=== PATIENT | female | born 1995 | race Caucasian/White ===

== ENCOUNTER 2016-03-23 18:10 | Emergency (ER) | payer OTHER ==
[~2016-03-23] VITALS: Ht 165.1 cm; Wt 55.6 kg
[2016-03-23 18:21] VITALS: TEMP 36.5; Ht 165.1 cm; Wt 55.6 kg
[2016-03-23] MEDS ORDERED: SODIUM CHLORIDE 0.9% 1000ML 1,000 ML IV STA (18:38)
[2016-03-23] MEDS ORDERED: IBUP-1050 PO (18:42)
[2016-03-23] MEDS ORDERED: BCPILLS PO (18:42)
[2016-03-23] MEDS ORDERED: OPTIRAY 320 IV PRN (18:45)
--- NOTE | 2016-03-23 18:50 | EMERGENCY ROOM VISIT NOTE ---
History First contact with patient: 18:26 Chief Complaint: ABDOMINAL PAIN Stated Complaint: ABD PAIN, VOMITING History of Present Illness The patient is a 21 year old female who presents to the Emergency Room via private vehicle accompanied by roommate with complaints of "abdominal pain, vomiting". Patient states that she woke up this morning around 8 AM with pain in the right lower quadrant. She then vomited around 11 AM or noon time today. She then vomited again and tried to eat and then had diarrhea 2. She is a constant cramps all day. She states that prior to coming here in the roommate states she almost passed out twice, her face turned green and she "lost her vision". She notes that her roommate had a stomach bug 2 days ago but these were different symptoms. She now points to the lower quadrants favoring the right side. She does have associated chills. She denies any vomiting blood, fevers, having this before, prior abdominal surgeries, appendix, chest pain, shortness of breath, history of ovarian torsion, history of some ovarian cysts, chance of , vaginal discharge or urinary symptoms. She declined pelvic exam noted that she just had one. Review of Systems A complete 10-point Review of Systems was discussed with the patient, with pertinent positives and negatives listed in the History of Present Illness. All remaining Review of Systems questions can be considered negative unless otherwise specified. Past Medical/Surgical History Skin problems, bronchitis, blood clots. Family History High blood pressure, cancer, kidney disease or stones. Social History Smoking Status: Never Smoker Social History: Patient was at home with friends, she denies tobacco use but admits to alcohol use. Current/Historical Medications Scheduled Control Pills ( Control Pills), 1 TAB PO DAILY Sulfa/Trimethoprim (Bactrim Ds 800MG/160MG), 1 TAB PO BID Scheduled PRN Ibuprofen (Advil), 600 MG PO DIRECTED PRN for Pain Allergies Coded Allergies: No Known Allergies (Unverified , 03/23/16) Physical Exam Vital Signs Date Time Temp Pulse Resp B/P Pulse Ox O2 Delivery O2 Flow Rate FiO2 03/23/16 22:06 85 20 117/61 96 03/23/16 22:01 85 20 117/61 96 Room Air 03/23/16 19:59 88 16 123/67 97 Room Air 03/23/16 18:21 36.5 110 20 95/65 99 Room Air Physical Exam VITAL SIGNS - Vital signs and nursing notes were reviewed. GENERAL -21-year-old female appearing her stated age who is in no acute distress. Patient is nontoxic in appearance. Communicates well with provider and answers questions appropriately. SKIN - Without rashes. No petechial rashes. HEAD - NC/AT. EYES - PERRL with EOMI bilaterally. Sclera anicteric. Palpebral conjunctiva pink and moist with no injection noted. EARS - No deformities of external structures noted on gross examination bilaterally. No pain elicited with palpation of the tragus bilaterally. External auditory canals without discharge or otorrhea. Tympanic membranes pearly calvillo without retraction or bulging. No fluid or purulent material visualized behind the TM. Handle of malleus, umbo, cone of light, pars tensa/ flaccid all easily visualized. NOSE - Midline and without cyanosis. No epistaxis or purulent drainage noted. Septum midline without deviation or septal hematoma noted. MOUTH/OROPHARYNX - Without perioral cyanosis. Buccal mucosa pink and moist and without leukoplakia. Tongue midline with equal elevation of palate bilaterally. No tonsillar hypertrophy, erythema, or exudates noted. Fair dentition noted. The airway is patent. NECK - Neck with FROM. Supple to palpation. No lymphadenopathy noted. No nuchal rigidity. No meningismus. LUNGS - Chest wall symmetric without accessory muscle use, intercostals retractions, or central cyanosis. Normal vesicular breath sounds CTA B/L. No wheezes, rales, or rhonchi appreciated. CARDIAC - RRR with S1/S2. No murmur, rubs, or gallops appreciated. ABDOMEN - Abdominal contour without pulsations or visible masses. BS normoactive all four quadrants. No there is localized tenderness over the right lower quadrant. No masses, hepatosplenomegaly, or ascites noted. EXTREMITIES - No clubbing or peripheral cyanosis. No pretibial edema present. + 5/5 strength noted in UE/LE bilaterally. NEUROLOGIC - Cranial nerves II through XII grossly intact. Sensory intact to light touch throughout. PSYCH - A&Ox3 and cooperates fully with examiner. Pt is very pleasant and interacts well with examiner. Patient declined pelvic exam. Sodium Medical Decision & Procedures ER Provider Diagnostic Interpretation: ULTRASOUND OF THE APPENDIX CLINICAL HISTORY: Right lower quadrant abdominal pain. COMPARISON STUDY: No priors. FINDINGS: Real-time, grayscale, and color flow sonography of the right lower quadrant was performed to assess for acute appendicitis. The appendix was not discretely visualized. No inflammatory changes or free fluid are seen in the right lower quadrant. No lymphadenopathy was seen. IMPRESSION: Nonvisualization of the appendix. Note that this does not exclude acute appendicitis. Electronically signed by: Emmanuel Hayes M.D. 03/23/2016 8:00 PM Dictated Date/Time: 03/23/2016 8:[address] SCAN OF THE ABDOMEN AND PELVIS WITH IV CONTRAST CLINICAL HISTORY: Right lower quadrant abdominal pain. COMPARISON STUDY: Right lower quadrant ultrasound dated 03/23/16. TECHNIQUE: Following the IV administration of 110 cc of Optiray 320, CT scan of the abdomen and pelvis is performed from the lung bases to the proximal femora. Images are reviewed in the axial, sagittal, and coronal planes. IV contrast was administered without complication. Automated dose control exposure was utilized. CT DOSE: 296.41 mGy.cm FINDINGS: Lung bases: The heart is normal in size and without pericardial effusion. There is a 3 mm subpleural nodule in the right lower lobe seen on image #22. A 7 mm subpleural nodule in the left lower lobe as seen on image #23. 3 additional left lower lobe pulmonary nodules measure up to 5 mm. There is no airspace consolidation or pleural effusion. Liver: The contrast-enhanced liver is normal in size, contour, and attenuation. There is no intrahepatic biliary ductal dilatation. The hepatic veins and portal veins are patent. Gallbladder: Unremarkable. Spleen: Normal in size and attenuation. Pancreas: Unremarkable. Adrenal glands: Unremarkable. Kidneys: The contrast enhanced kidneys are normal in size and without hydronephrosis. The kidneys enhance symmetrically. Abdominal vasculature: The abdominal aorta is normal in course and caliber. Bowel: The small bowel and colon are normal in course and caliber. The appendix is well-visualized and normal. Peritoneum: There is no intraperitoneal free air or abdominal ascites. There is a small fat-containing umbilical hernia. Lymphadenopathy: None. Pelvic viscera: The bladder, uterus, and adnexa are normal as visualized.There are bilateral ovarian follicles. Skeletal structures: No lytic or blastic lesions are seen. IMPRESSION: 1. There are no acute infectious or inflammatory findings in the abdomen or pelvis. 2. There are scattered pulmonary and pleural-based nodules at the lung bases which measure up to 7 mm. These are of doubtful significance in this age group. Any follow-up should be based on clinical grounds. Electronically signed by: Emmanuel Hayes M.D. 03/23/2016 9:25 PM Dictated Date/Time: 03/23/2016 9:19 PM Laboratory Results 03/23/16 18:29 Red Blood Count 4.55, Mean Corpuscular Volume 92.7, Mean Corpuscular Hemoglobin 31.0, Mean Corpuscular Hemoglobin Concent 33.4, Mean Platelet Volume 11.1, Neutrophils (%) (Auto) 87.2, Lymphocytes (%) (Auto) 7.5, Monocytes (%) (Auto) 4.7, Eosinophils (%) (Auto) 0.2, Basophils (%) (Auto) 0.1, Neutrophils # (Auto) 7.96, Lymphocytes # (Auto) 0.69, Monocytes # (Auto) 0.43, Eosinophils # (Auto) 0.02, Basophils # (Auto) 0.01 03/23/16 18:29 Test 03/23/16 18:29 03/23/16 18:38 03/23/16 19:10 White Blood Count 9.14 K/uL (4.8-10.8) Red Blood Count 4.55 M/uL (4.2-5.4) Hemoglobin 14.1 g/dL (12.0-16.0) Hematocrit 42.2 % (37-47) Mean Corpuscular Volume 92.7 fL (80-100) Mean Corpuscular Hemoglobin 31.0 pg (25-34) Mean Corpuscular Hemoglobin Concent 33.4 g/dl (32-36) Platelet Count 183 K/uL (130-400) Mean Platelet Volume 11.1 fL (7.4-10.4) Neutrophils (%) (Auto) 87.2 % Lymphocytes (%) (Auto) 7.5 % Monocytes (%) (Auto) 4.7 % Eosinophils (%) (Auto) 0.2 % Basophils (%) (Auto) 0.1 % Neutrophils # (Auto) 7.96 K/uL (1.4-6.5) Lymphocytes # (Auto) 0.69 K/uL (1.2-3.4) Monocytes # (Auto) 0.43 K/uL (0.11-0.59) Eosinophils # (Auto) 0.02 K/uL (0-0.5) Basophils # (Auto) 0.01 K/uL (0-0.2) RDW Standard Deviation 45.0 fL (36.4-46.3) RDW Coefficient of Variation 13.4 % (11.5-14.5) Immature Granulocyte % (Auto) 0.3 % Immature Granulocyte # (Auto) 0.03 K/uL (0.00-0.02) Anion Gap 10.0 mmol/L (3-11) Est Creatinine Clear Calc Drug Dose 88.0 ml/min Estimated GFR () 108.1 Estimated GFR (Non- 93.3 BUN/Creatinine Ratio 20.3 (10-20) Calcium Level 8.9 mg/dl (8.5-10.1) Magnesium Level 2.0 mg/dl (1.8-2.4) Total Bilirubin 0.9 mg/dl (0.2-1) Aspartate Amino Transf (AST/SGOT) 19 U/L (15-37) Alanine Aminotransferase (ALT/SGPT) 24 U/L (12-78) Alkaline Phosphatase 42 U/L (45-117) Total Protein 7.7 gm/dl (6.4-8.2) Albumin 3.9 gm/dl (3.4-5.0) Globulin 3.8 gm/dl (2.5-4.0) Albumin/Globulin Ratio 1.0 (0.9-2) Urine Color ORANGE Urine Appearance CLOUDY (CLEAR) Urine pH 5.5 (4.5-7.5) Urine Specific [place] 1.036 (1.000-1.030) Urine Protein NEG (NEG) Urine Glucose (UA) NEG (NEG) Urine Ketones TRACE (NEG) Urine Occult Blood NEG (NEG) Urine Nitrite POS (NEG) Urine Bilirubin NEG (NEG) Urine Urobilinogen NEG (NEG) Urine Leukocyte Esterase SMALL (NEG) Urine WBC (Auto) 10-30 /hpf (0-5) Urine RBC (Auto) 0-4 /hpf (0-4) Urine Hyaline Casts (Auto) 1-5 /lpf (0-5) Urine Epithelial Cells (Auto) >30 /lpf (0-5) Urine Bacteria (Auto) 2+ (NEG) Urine Pathogenic Casts /lpf (0) Medications Administered Medications (Trade) Dose Ordered Sig/Aldo Route Start Time Stop Time Status Last Admin Dose Admin Sodium Chloride (Nss 1000ml) 1,000 ml @ 999 mls/hr Q1H1M STAT IV 03/23/16 18:38 03/23/16 19:38 DC 03/23/16 19:08 999 MLS/HR Trimethoprim/ Sulfamethoxazole (Sulfameth/ Trimeth Ds 800/ 160MG Home Pack) 1 [facility] UD STAT PO 03/23/16 21:49 03/23/16 21:50 DC 03/23/16 22:03 1 [facility] Medical Decision Patient was evaluated as above. After obtaining a thorough history and physical exam, IV access was obtained and a CBC, CMP, ultrasound of the appendix, CT abdomen and pelvis IV and oral contrast, hydrated with 1 liter of normal saline , UA clean catch culture if indicated, urine , magnesium. The patient had pinpoint tenderness in the right lower quadrant. Concern was for appendicitis, most likely ovarian torsion. She declined pelvic exam. She most likely is experiencing a viral gastroenteritis particularly as her roommate had similar symptoms just days prior. Review of her lab work, CBC reveals no leukocytosis or anemia. Electrolytes are unremarkable. BUN/creatinine are normal. Alkaline phosphatase was slightly low. Magnesium normal. Urine reveals trace ketones, positive nitrates, small amount of leukocyte esterase, 10 -30 white blood cells, 2+ urinary bacteria and greater than 30 epithelial cells. Patient has had UTIs in the past but denies symptoms today. Urine is negative. While waiting for the patient to drink oral contrast and ultrasound of the appendix was obtained to potentially identify this on ultrasound and spared the patient from CT of the abdomen radiation. This was nondiagnostic. CT the abdomen was obtained after verifying patient consented. This did not reveal any acute findings. The lung no needles were discussed with the patient she was provided a copy of this report follow-up with her family doctor. Her parents were present during his discussion. Results of the imaging studies are as above. Again the patient is myself experiencing a viral gastroenteritis, however she was offered an ultrasound of the ovarian region to rule out torsion but noted that she would return with worsening of symptoms and declined this at this time. She declined pelvic exam. She noted that her pain and decreased from an 8/10 to a 4-5/10 after fluids. She did move her bowels once here. She clinically looks well and do believe she is stable for discharge and she indicated she would like to go home. She is to follow up with [facility] in the next few days regarding her stay here. She is to potentially follow up with surgery regarding the fact containing umbilical hernia and was provided the contact information for general surgeon. She was educated upon worrisome symptoms in which to return, educated upon management of today's findings, had questions answered prior to discharge and was discharged. She denied any for pain during her stay. In evaluation treatment this patient following differential diagnoses were entertained: Viral gastroenteritis, appendicitis, ovarian torsion, perforated bowel, epiploic appendicitis, , among others. Impression Primary Impression: Right lower quadrant abdominal pain Additional Impression: UTI (urinary tract infection) Departure Information Dispostion Home / Self-Care Condition GOOD Prescriptions Sulfa/Trimethoprim (Bactrim Ds 800MG/160MG) Tab 1 TAB PO BID for 9 Days, #18 TAB Prov: Steve Deras PA-C 03/23/16 Referrals No Doctor, Assigned (PCP) Mike Contreras M.D. Patient Instructions [facility] Additional Instructions You have been treated in the Emergency Department for abdominal pain/ Urinary Tract Infection (UTI). You have been prescribed Bactrim to be taken every 12 hours. This is an antibiotic. All antibiotics have the potential to cause diarrhea. Stop this medication and contact a medical provider if you were to develop any significant adverse side effects including: wheezing, shortness of breath, passing out, vomiting, or a diffuse rash. Always take antibiotics as directed and COMPLETE the ENTIRE course regardless of the improvement of your symptoms. You were given the first 24 hour supply here with the remainder sent to your pharmacy for mushroom picker. For pain control, you can use the following [id number] medicines (if >12 yo): - Regular strength (325mg/tab) Tylenol (acetaminophen) 2 tabs every 4-6 hours as needed. Do not exceed 12 tablets in a 24 hour period. Avoid taking more than 4 grams (4000 mg) of Tylenol per day. This includes any other sources of acetaminophen you may take on a regular basis. - Regular strength (200 mg/tab) Advil (ibuprofen) 1-2 tabs every 4-6 hours as needed. Do not exceed a dose of 3200 mg per day. Return to the emergency department if your symptoms worsen despite treatment course outlined above. Drink plenty of water and stay well hydrated. As with any trip to the Emergency Department, you should follow-up with your Primary Care Provider from today's visit. As we discussed please follow up with [facility] in the next 1- 2 days for reevaluation. Please return here for any worsening of your symptoms. Return to the emergency department if your symptoms persist despite treatment plan outlined above or if the following symptoms occur: increased fevers, chills , low back pain, nausea/vomiting, or blood in your urine. Please return to the emergency department with any new/concerning symptoms. Problem Qualifiers Additional Impression: UTI (urinary tract infection) Urinary tract infection type: acute cystitis Hematuria presence: without hematuria Qualified Codes: N30.00 - Acute cystitis without hematuria
[2016-03-23 19:30] LABS: URINE APPEARANCE CLOUDY (CLEAR); URINE COLOR ORANGE; URINE EPITHELIAL CELL AUTO >30 /lpf (0-5); URINE NITRITE POS (NEG); URINE PH 5.5 (4.5-7.5); URINE SPECIFIC GRAVITY 1.036 (1.000-1.030); UROBILINOGEN NEG (NEG); ZZUR CULT IF INDIC CLEAN CATCH YES
[2016-03-23 19:31] LABS: MANUAL MICROSCOPIC REQUIRED? NO; REVIEW REQ? YES
[2016-03-23 19:32] LABS: URINE BILIRUBIN NEG (NEG)
[2016-03-23 19:43] LABS: HEMATOCRIT 42.2 % (37-47); MEAN CELL VOLUME 92.7 fL (80-100); MEAN CORPUSCULAR HGB CONC 33.4 g/dl (32-36); MEAN PLATELET VOLUME 11.1 fL (7.4-10.4); PLATELET COUNT 183 K/uL (130-400); RED BLOOD COUNT 4.55 M/uL (4.2-5.4); WHITE BLOOD COUNT 9.14 K/uL (4.8-10.8)
[2016-03-23 20:01] LABS: BASO % 0.1 %; BASO ABS # 0.01 K/uL (0-0.2); COMPLETE YES; EOS % 0.2 %; IG% 0.3 %; LYMPH % 7.5 %; LYMPH ABS # 0.69 K/uL (1.2-3.4); MONO % 4.7 %; NEUT % 87.2 %
--- NOTE | 2016-03-23 20:01 | DIAGNOSTIC IMAGING REPORT ---
ULTRASOUND OF THE APPENDIX CLINICAL HISTORY: Right lower quadrant abdominal pain. COMPARISON STUDY: No priors. FINDINGS: Real-time, grayscale, and color flow sonography of the right lower quadrant was performed to assess for acute appendicitis. The appendix was not discretely visualized. No inflammatory changes or free fluid are seen in the right lower quadrant. No lymphadenopathy was seen. IMPRESSION: Nonvisualization of the appendix. Note that this does not exclude acute appendicitis. Electronically signed by: Emmanuel Hayes M.D. 03/23/2016 8:00 PM Dictated Date/Time: 03/23/2016 8:00 PM
[2016-03-23 20:08] LABS: BUN/CREATININE RATIO 20.3 (10-20); CALCIUM 8.9 mg/dl (8.5-10.1); CREATININE 0.88 mg/dl (0.60-1.20); POTASSIUM 3.8 mmol/L (3.5-5.1)
--- NOTE | 2016-03-23 21:27 | DIAGNOSTIC IMAGING REPORT ---
CT SCAN OF THE ABDOMEN AND PELVIS WITH IV CONTRAST CLINICAL HISTORY: Right lower quadrant abdominal pain. COMPARISON STUDY: Right lower quadrant ultrasound dated 03/23/16. TECHNIQUE: Following the IV administration of 110 cc of Optiray 320, CT scan of the abdomen and pelvis is performed from the lung bases to the proximal femora. Images are reviewed in the axial, sagittal, and coronal planes. IV contrast was administered without complication. Automated dose control exposure was utilized. CT DOSE: 296.41 mGy.cm FINDINGS: Lung bases: The heart is normal in size and without pericardial effusion. There is a 3 mm subpleural nodule in the right lower lobe seen on image #22. A 7 mm subpleural nodule in the left lower lobe as seen on image #23. 3 additional left lower lobe pulmonary nodules measure up to 5 mm. There is no airspace consolidation or pleural effusion. Liver: The contrast-enhanced liver is normal in size, contour, and attenuation. There is no intrahepatic biliary ductal dilatation. The hepatic veins and portal veins are patent. Gallbladder: Unremarkable. Spleen: Normal in size and attenuation. Pancreas: Unremarkable. Adrenal glands: Unremarkable. Kidneys: The contrast enhanced kidneys are normal in size and without hydronephrosis. The kidneys enhance symmetrically. Abdominal vasculature: The abdominal aorta is normal in course and caliber. Bowel: The small bowel and colon are normal in course and caliber. The appendix is well-visualized and normal. Peritoneum: There is no intraperitoneal free air or abdominal ascites. There is a small fat-containing umbilical hernia. Lymphadenopathy: None. Pelvic viscera: The bladder, uterus, and adnexa are normal as visualized.There are bilateral ovarian follicles. Skeletal structures: No lytic or blastic lesions are seen. IMPRESSION: 1. There are no acute infectious or inflammatory findings in the abdomen or pelvis. 2. There are scattered pulmonary and pleural-based nodules at the lung bases which measure up to 7 mm. These are of doubtful significance in this age group. Any follow-up should be based on clinical grounds. Electronically signed by: Emmanuel Hayes M.D. 03/23/2016 9:25 PM Dictated Date/Time: 03/23/2016 9:19 PM
[2016-03-23] MEDS ORDERED: SULF800T23 PO (21:49)
[2016-03-23] MEDS ORDERED: SEPTRA DS HOME PACK 1 EA VIAL PO STA (21:49)
[2016-03-23 22:06] VITALS: BP 117/61; PULSE 85; O2SAT 96
== END 2016-03-23 22:07 | disposition home or self-care (01) ==
LOC: C.EDB 18:13 → C.EDA 22:07
DX: R10.31 Right lower quadrant pain (principal); N39.0 Urinary tract infection, site not specified; N83.209 Unspecified ovarian cyst, unspecified side; Z82.49 Family history of ischemic heart disease and other diseases of the circulatory system; Z80.9 Family history of malignant neoplasm, unspecified; Z84.1 Family history of disorders of kidney and ureter